=== PATIENT | female | born 1965 | race Caucasian/White ===

== ENCOUNTER 2025-04-14 13:55 | Emergency (ER) | payer SELFPAY ==
[2025-04-14 14:03] VITALS: BP 149/70
--- NOTE | 2025-04-14 16:05 | ED.GENMED ---
History of Present Illness
General
Chief Complaint: Fall
Source: patient
Exam Limitations: none
Time Seen by Provider: 04/14/25 15:38
History of Present Illness
History of Present Illness:
60yo [id number] female presenting for evaluation of left elbow pain. Patient was walking out of work yesterday when she slipped on rocks salt and fell forward. She struck her nose against the pavement. She did not lose consciousness.
She went to urgent care today due to left elbow pain and was told that they may be a fracture and to go to the ED for evaluation. She has no headache and does not take any blood thinners. No paresthesias. Tetanus vaccine is reportedly up-to-date.
Phy Exam
General Physical Exam
General Presentation: well appearing and no apparent distress
General Skin: warm and dry
General Habitus: normal
General Mental: alert
ENT Exam
ENT Exam: other (Nasal abrasions noted)
Pulmonary Exam
Pulmonary Exam: no respiratory distress
Neurological Exam
Neurological Exam: alert
Sumi Coma Scale
Eye Opening: Spontaneous
Verbal Response: Oriented
Motor Response: Obeys Commands
GCS Total Score: 15
Musculoskeletal Exam
Musculoskeletal Exam: other (Swelling noted to the L elbow. No deformity. ROM decreased 2/2 pain. 2+ radial pulse and sensation intact. )
Skin Exam
Skin Exam: normal color and warm/dry
Psychiatric Exam
Psychiatric Exam: normal mood/affect
Course
Orders/Labs/Results
Orders:
Orders
04/14/25 14:10
CR Forearm - Left 2 View Urgent
Comment:
Reason For Exam: injury
CR Wrist - Left Min 3 Views Urgent
Comment:
Reason For Exam: injury
Elbow, 3 view, Left [CR Elbow - Left Min 3 Views ] Urgent
Comment:
Reason For Exam: injury
04/14/25 16:05
Sling Left-Treatment ONCE
Vital Signs
Initial and Last Documented VS:
Initial Vital Signs
Temp Pulse Resp BP Pulse Ox
97.7 F 95 18 149/70 99
04/14/25 14:03 04/14/25 14:03 04/14/25 14:03 04/14/25 14:03 04/14/25 14:03
Last Documented Vital Signs
Temp Pulse Resp BP Pulse Ox
97.7 F 95 18 149/70 99
04/14/25 14:03 04/14/25 14:03 04/14/25 14:03 04/14/25 14:03 04/14/25 16:06
MDM/Problems Addressed
Differential Diagnosis Includes:
60yoF here with possible L elbow fracture after fall yesterday. Sent by urgent care for abnormal x-ray. Swelling noted on exam with decreased ROM. No deformity. LUE is neurovascularly intact.
X-rays of L wrist, forearm, and elbow obtained in triage. Imaging shows an elbow effusion with elevation of anterior and posterior fat pads suggestive of radiographically occult fracture. Sling ordered although patient was given this at urgent
care. She is requesting prescription pain medications. PDMP reviewed and she does have Tramadol at home which she claims is not helping. Will give a prescription for 6 tablets of [place]. She was advised to not take Tramadol simultaneously. She
was advised to f/u with orthopedics for further care.
*Pulse Oximetry
SaO2: 99
Oxygen Mode of Delivery: Room air
Patient hypoxic: no
*Critical Care Note
Total Time (30-74mins, 75-104mins- exclusive of procedures): Not Applicable
ED Attending Note
-
Portions of this chart may have been created with voice recognition software.� Occasional wrong word or��sound alike� substitutions may have occurred due to the inherent limitations of voice recognition software.
Discharge Plan
Departure
Patient Disposition: Home (Routine Discharge)
Date of Disposition: 04/14/25
Time of Disposition: 16:26
Patient with high blood pressure during this ER visit?: Yes
Discharge Problem:
Injury of left elbow, Effusion of left elbow
Instructions: Elbow Fracture, Adult ED, Taking opioids safely - ED (DC)
Prescriptions:
New
hydrocodone-acetaminophen 5-325 mg tablet
1 tab PO Q8H PRN (Reason: Pain) Qty: 6 0RF
Referrals:
Paulo Simmons MD [Active, Orthopedics]
Stand Alone Forms: Return to Work
Activity Restrictions/Additional Instructions:
Wear sling for immobilization. Apply ice to help with swelling. Take [place] only as needed for severe breakthrough pain. Do NOT take this with Tramadol.
Please call tomorrow to schedule a follow-up appointment with orthopedics for further treatment.
Interventions
Interventions:
*General Assessment Last Done: 04/14/25 14:03
*Neglect/Abuse Screening Last Done: 04/14/25 14:03
*ED COVID-19 Vaccine History Last Done: 04/14/25 14:03
*ED Influenza Vaccine History Last Done: 04/14/25 14:03
*Risk Screen - Suicide (C-SSRS) Last Done: 04/14/25 14:03
*Nursing Disposition Last Done: 04/14/25 16:34
ED-Musculoskeletal Assessment Last Done: 04/14/25 16:02
ED- Neurological Assessment Last Done: 04/14/25 16:01
Discharge Date and Time
Discharge Date/Time: 04/14/25 16:35
Print Language: SWEDISH
== END 2025-04-14 16:35 | disposition home or self-care (01) ==
LOC: EMR 13:55
PROVIDERS: EMERGENCY PHYSICIAN Emergency Medicine
DX: S59.902A Unspecified injury of left elbow, initial encounter (principal); M25.422 Effusion, left elbow; W01.0XXA Fall on same level from slipping, tripping and stumbling without subsequent striking against object, initial encounter; Y93.01 Activity, walking, marching and hiking; R03.0 Elevated blood-pressure reading, without diagnosis of hypertension
CPT/HCPCS: 99283; 73080; 73090; 73110